=== PATIENT | female | born 1990 | race American Indian/Alaskan Native ===

== ENCOUNTER 2018-09-26 00:01 | Emergency (ER) | payer MEDICAID ==
[2018-09-26 00:01] VITALS: BMI 42.5
[2018-09-26 00:29] VITALS: BP 113/71; PULSE 116; RESP 24; TEMP 98.7; O2SAT 100
[2018-09-26] MEDS ORDERED: Sodium Chloride 0.9% 1,000 ML IV ONE (00:38)
--- NOTE | 2018-09-26 00:38 | C.PDOC ---
History Of Present Illness The patient, who is currently around 8 weeks , presents to the ED for evaluation of abdominal pain which worsened tonight. Patient denies fever, chills, back pain, or vaginal bleeding. Patient is . Time Seen by Provider: 09/26/18 00:37 Chief Complaint (Nursing): Abdominal Pain History Per: Patient History/Exam Limitations: no limitations Onset/Duration Of Symptoms: Hrs Current Symptoms Are (Timing): Worse Severity: Mild Pain Scale Rating Of: 2 Location Of Pain/Discomfort: Diffuse Radiation Of Pain To:: None Quality Of Discomfort: "Pain" Associated Symptoms: denies: Fever, Chills, Back Pain Exacerbating Factors: None Alleviating Factors: Rest Last Bowel Movement: Today Recent travel outside of the [place]: No Additional History Per: Patient Abnormal Vaginal Bleeding: No : 3 Para: 1 Past Medical History Reviewed: Historical Data, Nursing Documentation, Vital Signs Vital Signs: Last Vital Signs Temp 98.7 F 09/26/18 00:25 Pulse 116 H 09/26/18 00:25 Resp 24 09/26/18 00:25 BP 113/71 09/26/18 00:25 Pulse Ox 100 09/26/18 00:25 - Medical History PMH: Asthma, HTN, Hypercholesterolemia, Hypothyroidism Denies: Chronic Kidney Disease Surgical History: Endoscopy - [facility] LAPAROSCOPIC ROBOTIC ASSISTED PROCEDURE (01/27/15) LAPAROSCOPIC VERTICAL (SLEEVE) GASTRECTOMY (01/27/15) OTHER ENDOSCOPY OF SM INTEST (01/27/15) Family History: States: Unknown Family Hx - Social History Hx Alcohol Use: No Hx Substance Use: No Review Of Systems Constitutional: Negative for: Fever, Chills Cardiovascular: Negative for: Chest Pain, Palpitations Respiratory: Negative for: Cough, Shortness of Breath Gastrointestinal: Positive for: Abdominal Pain. Negative for: Nausea, Vomiting, Diarrhea Genitourinary: Negative for: Dysuria, Frequency, Hematuria, Vaginal Discharge, Vaginal Bleeding Musculoskeletal: Negative for: Back Pain Skin: Negative for: Rash, Lesions, Jaundice, Bruising Neurological: Negative for: Weakness, Numbness Physical Exam - Physical Exam Appears: Non-toxic, No Acute Distress Skin: Warm, Dry Head: Normacephalic Eye(s): bilateral: Normal Inspection Oral Mucosa: Moist Neck: Supple Chest: Symmetrical, No Deformity Cardiovascular: Rhythm Regular, No Murmur Respiratory: No Rales, No Rhonchi, No Wheezing Gastrointestinal/Abdominal: Soft, Tenderness (diffuse), No Guarding, No Rebound Extremity: Normal ROM, Capillary Refill (less than 2 seconds ) Neurological/Psych: Oriented x3 ED Course And Treatment - Laboratory Results Result Diagrams: 09/26/18 01:01 09/26/18 01:01 O2 Sat by Pulse Oximetry: 100 (on RA) Pulse Ox Interpretation: Normal - CT Scan/US OB transvaginal ultrasound Other Rad Studies (CT/US): Read By Radiologist, Radiology Report Reviewed CT/US Interpretation: Obstetric ultrasound, transvaginal. Indication: Abdominal pain for 8 weeks. Technique: Real-time ultrasound images were obtained. Findings: Single, intrauterine gestation. No cardiac activity is noted. The uterus and left ovary are unremarkable. Right ovarian corpus luteum cyst measuring 2.1 cm. Closed cervix. The crown-rump length measures 1.5 cm which corresponds to an estimated gestational age of 7 weeks and 6 days. Impression: demise. Progress Note: Bloodwork, urinalysis, OB transvaginal ultrasound ordered. IV Fluids given. 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 I have reviewed the chart and agree that the record accurately reflects my personal performance of the history, physical exam, medical decision making, and the department course for this patient. I have also personally directed, reviewed, and agree with the discharge instructions and disposition.
[2018-09-26 00:50] LABS: HCG,QUALITATIVE URINE POSITIVE (NEGATIVE)
[2018-09-26 01:10] LABS: BASO % 0.6 % (0.0-2.0); EOS # 0.1 K/uL (0.0-0.7); EOS % 1.4 % (0.0-4.0); HEMOGLOBIN 12.7 g/dL (11.0-16.0); LYMPH # 1.9 K/uL (1.0-4.3); LYMPH % 34.7 % (20.0-40.0); MEAN CELL VOLUME 89.3 fL (81.0-99.0); MEAN CORPUSCULAR HEMOGLOBIN 28.6 pg (27.0-31.0); MEAN PLATELET VOLUME 9.5 fL (7.2-11.7); MONO # 0.3 K/uL (0.0-0.8); MONO % 5.7 % (0.0-10.0); NEUT # 3.1 K/uL (1.8-7.0); NEUT % 57.6 % (50.0-75.0); NRBC % 0.1 % (0.0-2.0); RBC 4.43 Mil/uL (3.80-5.20); RED CELL DISTRIBUTION WIDTH 15.1 % (11.5-14.5); WHITE BLOOD COUNT 5.3 K/uL (4.8-10.8)
[2018-09-26 01:13] LABS: PROTHROMBIN TIME 10.8 SECONDS (9.7-12.2)
[2018-09-26 01:24] LABS: ALBUMIN 4.5 g/dL (3.5-5.0); BLOOD UREA NITROGEN 8 mg/dL (7-17); CALCIUM 9.1 mg/dl (8.6-10.4); GFR NON-AFRICAN AMERICAN > 60
[2018-09-26 01:24] LABS: SQUAMOUS EPITHIAL 9 /hpf (0-5); URINE BILIRUBIN NEGATIVE (NEGATIVE); URINE BLOOD NEGATIVE (NEGATIVE); URINE CLARITY Clear (Clear); URINE COLOR Yellow (YELLOW); URINE GLUCOSE (UA) NORMAL (Normal); URINE LEUKOCYTE ESTERASE 1+ Leu/uL (Negative); URINE PROTEIN NEGATIVE (NEGATIVE); URINE UROBILINOGEN NORMAL mg/dL (0.2-1.0)
[2018-09-26 01:25] LABS: ALB/GLOB RATIO 1.3 (1.0-2.1); ALT/SGPT 26 U/L (9-52); AST/SGOT 25 U/L (14-36)
--- NOTE | 2018-09-26 09:51 | US ---
Indication: abd pain, 8 weeks preg Comparison: None available Technique: Transvaginal pelvic ultrasound Findings: The uterus measures approximately 8.9 x 6.3 x 5.6 cm. Anteverted. Cervix length measures approximately 3.9 cm. There is a single intrauterine fetus present. 4 mm yolk sac. The gestational sac measures 2.1 cm and is compatible with a gestational age of 6 weeks 4 days. The crown-rump length measures 1.5 cm and is compatible with a gestational age of 7 weeks 6 days. heart motion is not detected. The right ovary measures 3.3 x 2.3 x 3.6 cm and contains 2.1 x 1.6 x 1.9 cm probable corpus luteal cyst. The left ovary measures 2.8 x 1.6 x 3.2. Blood flow was demonstrated to both ovaries. Small pelvic free fluid. Impression: Single intrauterine with estimated gestational age 6 weeks 4 days by gestational sac calculation and 7 weeks 6 days by crown-rump length calculation. heart rate was not detected. Correlate clinically including OBGYN consultation and short-term ultrasound follow-up if indicated. Small pelvic free fluid. Preliminary impression was provided by [employer]. Study marked for DARSHANA review and discussed with DARSHANA Smith on 09/26/18 at 9:47 a.m..
== END 2018-09-26 02:20 | disposition left against medical advice (07) ==
LOC: C.ER 00:01
DX: O02.1 Missed abortion (principal)